=== PATIENT | male | born 1975 | race Caucasian/White ===

== ENCOUNTER 2017-10-02 17:05 | Emergency (ER) | payer BC ==
[2017-10-02] MEDS ORDERED: ACETAMINOPHEN 500 MG TAB ONE (17:25)
[2017-10-02] MEDS ORDERED: ONDANSETRON 4 MG/2 ML VIAL ONE (19:17)
[2017-10-02] MEDS ORDERED: NA CHLORIDE 0.9% 1,000 ML ONE (19:17)
[2017-10-02 19:59] LABS: Absolute Lymphocytes (CBC) 1.7 K/uL (0.7-4.9); Absolute Monocytes 1.5 K/uL (0.1-1.3); Absolute Neutrophil 13.1 K/uL (1.8-8.0); Basophils % 0.3 % (0-1.3); Eosinophils % 0.4 % (0-4.4); Hematocrit 41.2 % (39.6-49.0); Lymphocytes % 10.2 % (15.3-44.8); MCH 29.7 pg (27.0-35.0); MCV 87.3 fL (80-100); MPV 7.5 fL (7.6-11.3); Monocytes % 9.3 % (3.3-12.3); RBC Red Blood Cell Count 4.72 M/uL (4.33-5.43)
--- NOTE | 2017-10-02 21:11 | RAD REPORT ---
EXAM DESCRIPTION: CTAbdomen Pelvis W Contrast - 10/02/2017 9:00 pm CLINICAL HISTORY: Abdominal pain. COMPARISON: 05/23/2011 TECHNIQUE: Biphasic CT imaging of the abdomen and pelvis was performed with 100 ml non-ionic IV cont rast. All CT scans are performed using dose optimization technique as appropriate and may include automated exposure control or mA/KV adjustment according to patient size. FINDINGS: Mild linear subsegmental atelectasis is present in both lung bases. A small hiatal hernia is present. The liver, spleen, pancreas, adrenal glands and kidneys are within normal limits. No bowel obstruction, free air, free fluid or abscess. Appendectomy clips. No evidence of significa nt lymphadenopathy. No suspicious bony findings. IMPRESSION: No acute intra-abdominal or pelvic finding.
--- NOTE | 2017-10-02 21:33 | EDPHYS ---
Physician Documentation [facility] Name: Fredi Harper Age: 42 yrs Sex: Male : 1975 Arrival Date: 10/02/2017 Time: 17:07 Bed 17 Private MD: ED Physician Abhay Stewart HPI: 10/02 18:38 This 42 yrs old Male presents to ER via Ambulatory with complaints of Flu kb Symptoms. 18:38 The patient presents to the emergency department with nausea, vomiting, diarrhea. kb Onset: The symptoms/episode began/occurred 3 day(s) ago. Possible causes: unknown. The symptoms are aggravated by nothing. The symptoms are alleviated by nothing. Associated signs and symptoms: Pertinent positives: diarrhea, fever, nausea, vomiting, Pertinent negatives: abdominal pain, anorexia, belching, constipation, dysuria, flatulence, GI bleeding, hematuria. Severity of symptoms: At their worst the symptoms were moderate in the emergency department the symptoms are unchanged. The patient has not experienced similar symptoms in the past. The patient has not recently seen a physician. Pt reports n/v/d, fever and sore throat since Tuesday. Historical: - Allergies: 17:21 No Known Allergies; la1 - Home Meds: 18:20 None [Active]; rb1 - PMHx: 17:21 None; la1 - PSHx: 18:20 None; rb1 - Immunization history:: Adult Immunizations up to date. - Social history:: Smoking status: Patient/guardian denies using tobacco. ROS: 18:32 Eyes: Negative for injury, pain, redness, and discharge, Neck: Negative for injury, kb pain, and swelling, Cardiovascular: Negative for chest pain, palpitations, and edema, Respiratory: Negative for shortness of breath, cough, wheezing, and pleuritic chest pain, Back: Negative for injury and pain, : Negative for injury, bleeding, discharge, and swelling, MS/Extremity: Negative for injury and deformity, Skin: Negative for injury, rash, and discoloration, Neuro: Negative for headache, weakness, numbness, tingling, and seizure. 18:32 Constitutional: Positive for body aches, chills, fatigue, fever, malaise, Negative for poor PO intake, weight loss. 18:32 ENT: Positive for sore throat. 18:32 Abdomen/GI: Positive for nausea, vomiting, and diarrhea, Negative for abdominal pain, constipation, abdominal cramps, abdominal distension, anorexia. Exam: 18:32 Head/Face: Normocephalic, atraumatic. Eyes: Pupils equal round and reactive to light, kb extra-ocular motions intact. Lids and lashes normal. Conjunctiva and sclera are non-icteric and not injected. Cornea within normal limits. Periorbital areas with no swelling, redness, or edema. ENT: Nares patent. No nasal discharge, no septal abnormalities noted. Tympanic membranes are normal and external auditory canals are clear. Oropharynx with no redness, swelling, or masses, exudates, or evidence of obstruction, uvula midline. Mucous membranes moist. Neck: Trachea midline, no thyromegaly or masses palpated, and no cervical lymphadenopathy. Supple, full range of motion without nuchal rigidity, or vertebral point tenderness. No Meningismus. Chest/axilla: Normal chest wall appearance and motion. Nontender with no deformity. No lesions are appreciated. Cardiovascular: Regular rate and rhythm with a normal S1 and S2. No gallops, murmurs, or rubs. Normal PMI, no JVD. No pulse deficits. Respiratory: Lungs have equal breath sounds bilaterally, clear to auscultation and percussion. No rales, rhonchi or wheezes noted. No increased work of breathing, no retractions or nasal flaring. Abdomen/GI: Soft, non-tender, with normal bowel sounds. No distension or tympany. No guarding or rebound. No evidence of tenderness throughout. Skin: Warm, dry with normal turgor. Normal color with no rashes, no lesions, and no evidence of cellulitis. MS/ Extremity: Pulses equal, no cyanosis. Neurovascular intact. Full, normal range of motion. Neuro: Awake and alert, GCS 15, oriented to person, place, time, and situation. Cranial nerves II-XII grossly intact. Motor strength 5/5 in all extremities. Sensory grossly intact. Cerebellar exam normal. Normal gait. 18:32 Constitutional: The patient appears alert, awake, uncomfortable. Vital Signs: 17:21 BP 132 / 85; Pulse 110; Resp 19; Temp 100.3(TE); Pulse Ox 100% on R/A; Weight 90.72 kg; la1 Height 5 ft. 11 in. (180.34 cm); 18:48 Temp 98.7(TE); rb1 19:10 BP 138 / 86; Pulse 103; Resp 16; Pulse Ox 100% on R/A; Pain 0/10; ao 20:05 BP 141 / 93; Pulse 93; Resp 16; Pulse Ox 99% on R/A; Pain 0/10; ao 21:13 BP 136 / 86; Pulse 94; Resp 18; Pulse Ox 100% on R/A; Pain 0/10; ao 17:21 Body Mass Index 27.89 (90.72 kg, 180.34 cm) la1 MDM: 18:19 Patient medically screened. kb 18:37 Data reviewed: vital signs, nurses notes. Data interpreted: Pulse oximetry: on room air kb is 100 %. Interpretation: normal. 21:16 Counseling: I had a detailed discussion with the patient and/or guardian regarding: the kb historical points, exam findings, and any diagnostic results supporting the discharge/admit diagnosis, lab results, radiology results, the need for outpatient follow up, a family practitioner, to return to the emergency department if symptoms worsen or persist or if there are any questions or concerns that arise at home. 21:32 ED course: Tolerating PO intake. kb 10/02 17:22 Order name: Strep; Complete Time: 17:54 la1 10/02 17:22 Order name: Flu; Complete Time: 17:54 la1 10/02 17:45 Order name: Throat Culture EDMS 10/02 18:22 Order name: CBC with Diff 10/02 18:22 Order name: Basic Metabolic Panel 10/02 18:22 Order name: [place] Screen Profile 10/02 18:23 Order name: CBC with Automated Diff; Complete Time: 20:15 EDMS 10/02 18:23 Order name: Basic Metabolic Panel; Complete Time: 19:20 EDMS 10/02 18:23 Order name: [place] Screen; Complete Time: 19:20 EDMS 10/02 20:16 Order name: CT Abd/Pelvis - W/Contrast; Complete Time: 21:15 kb 10/02 21:20 Order name: PO challenge; Complete Time: 21:25 kb Administered Medications: 17:35 Drug: Tylenol 1000 mg Route: PO; la1 18:54 Follow up: Response: No adverse reaction; Temperature is decreased rb1 19:22 Drug: NS 0.9% 1000 ml Route: IV; Rate: 1000 ml; Site: right antecubital; ao 21:48 Follow up: IV Status: Completed infusion ao 19:22 Drug: Zofran 4 mg Route: IVP; Site: right antecubital; ao 21:48 Follow up: Response: No adverse reaction ao Disposition: 10/03 08:59 Co-signature as Attending Physician, Abhay Stewart MD I agree with the assessment and rashard plan of care. Disposition: 10/02/17 21:32 Discharged to Home. Impression: Noninfective gastroenteritis and colitis, unspecified. - Condition is Stable. - Discharge Instructions: Food Choices to Help Relieve Diarrhea, Adult, Viral Gastroenteritis. - Prescriptions for Zofran 4 mg Oral Tablet - take 1 tablet by ORAL route every 6 hours As needed; 20 tablet. - Medication Reconciliation Form, Thank You Letter, Antibiotic Education, Prescription Opioid Use form. - Follow up: Emergency Department; When: As needed; Reason: Worsening of condition. Follow up: Private Physician; When: 2 - 3 days; Reason: Recheck today's complaints, Continuance of care, Re-evaluation by your physician. Signatures: Dispatcher [employer] EDMS Peace Pacheco, SHEET SEWER-C SHEET SEWER-Abhay Byrne MD MD cha Attema, Lee RN RN laEly Swann, RN RN rb1 Abdi Glass RN RN ao Corrections: (The following items were deleted from the chart) 10/02 17:23 17:22 Group A Streptococcus Rapid Sc+BA.LAB.BRZ ordered. EDMS EDMS : 17:22 Influenza Screen (A \T\ B)+BA.LAB.BRZ ordered. EDMS EDMS
--- NOTE | 2017-10-02 21:33 | ER ---
Nurse's Notes [facility] Name: Fredi Harper Age: 42 yrs Sex: Male : 1975 Arrival Date: 10/02/2017 Time: 17:07 Bed 17 Private MD: Diagnosis: Noninfective gastroenteritis and colitis, unspecified Presentation: 10/02 17:20 Presenting complaint: Patient states: sore throat, fever, vomiting, diarrhea for 3 la1 days. Transition of care: patient was not received from another setting of care. Onset of symptoms was October 02, 2017. Initial Sepsis Screen: Does the patient meet any 2 criteria? No. Patient's initial sepsis screen is negative. Does the patient have a suspected source of infection? No. Patient's initial sepsis screen is negative. Care prior to arrival: None. 17:20 Method Of Arrival: Ambulatory la1 17:20 Acuity: DARYL 3 la1 Historical: - Allergies: 17:21 No Known Allergies; la1 - Home Meds: 18:20 None [Active]; rb1 - PMHx: 17:21 None; la1 - PSHx: 18:20 None; rb1 - Immunization history:: Adult Immunizations up to date. - Social history:: Smoking status: Patient/guardian denies using tobacco. Screenin:20 Abuse screen: Denies threats or abuse. Nutritional screening: No deficits noted. rb1 Tuberculosis screening: No symptoms or risk factors identified. Fall Risk None identified. Assessment: 18:20 General: Appears in no apparent distress. comfortable, Behavior is calm, cooperative, rb1 Reports fever for 2-3 days. Neuro: Level of Consciousness is awake, alert, obeys commands, Oriented to person, place, time, situation. Cardiovascular: Capillary refill < 3 seconds is brisk in bilateral fingers. Respiratory: Airway is patent Respiratory effort is even, unlabored, Respiratory pattern is regular, symmetrical. GI: Reports nausea, vomiting. : No signs and/or symptoms were reported regarding the genitourinary system. Derm: Skin is pink, warm \T\ dry. 19:12 General: Appears in no apparent distress. comfortable, Behavior is calm, cooperative, ao appropriate for age, Reports fever for 2-3 days. Pain: Complains of pain in Body aches Pain does not radiate. Pain currently is 2 out of 10 on a pain scale. Neuro: Level of Consciousness is awake, alert, obeys commands, Oriented to person, place, Moves all extremities. Speech is normal, Facial symmetry appears normal. Cardiovascular: Capillary refill < 3 seconds is brisk in bilateral fingers Patient's skin is warm and dry. Respiratory: Airway is patent Respiratory effort is even, unlabored, Respiratory pattern is regular, symmetrical. GI: Abdomen is non-distended, Bowel sounds present X 4 quads. Reports nausea, vomiting. : No signs and/or symptoms were reported regarding the genitourinary system. EENT: No signs and/or symptoms were reported regarding the EENT system. Derm: Skin is pink, warm \T\ dry. Musculoskeletal: No signs and/or symptoms reported regarding the musculoskeletal system. 20:03 Reassessment: Patient appears in no apparent distress at this time. No changes from ao previously documented assessment. Patient and/or family updated on plan of care and expected duration. Pain level reassessed. Patient is alert, oriented x 3, equal unlabored respirations, skin warm/dry/pink. Waiting on WBC. [place] was negative and patient was notified. 21:13 Reassessment: Patient appears in no apparent distress at this time. Patient and/or ao family updated on plan of care and expected duration. Pain level reassessed. Patient is alert, oriented x 3, equal unlabored respirations, skin warm/dry/pink. Patient back from CT. waiting on CT report. 21:46 Reassessment: Dc instructions given to patient. Patient understand the POC and to ao follow up with PCP. Patient has no questions at this time. Vital Signs: 17:21 BP 132 / 85; Pulse 110; Resp 19; Temp 100.3(TE); Pulse Ox 100% on R/A; Weight 90.72 kg; la1 Height 5 ft. 11 in. (180.34 cm); 18:48 Temp 98.7(TE); rb1 19:10 BP 138 / 86; Pulse 103; Resp 16; Pulse Ox 100% on R/A; Pain 0/10; ao 20:05 BP 141 / 93; Pulse 93; Resp 16; Pulse Ox 99% on R/A; Pain 0/10; ao 21:13 BP 136 / 86; Pulse 94; Resp 18; Pulse Ox 100% on R/A; Pain 0/10; ao 17:21 Body Mass Index 27.89 (90.72 kg, 180.34 cm) la1 ED Course: 17:07 Patient arrived in ED. as 17:21 Triage completed. la1 17:21 Arm band placed on left wrist. la1 17:54 Peace Pacheco [facility]C [facility]. kb 17:54 Abhay Stewart MD is Attending Physician. kb 18:18 Ely Carlin, RN is Primary Nurse. rb1 18:20 Patient has correct armband on for positive identification. Bed in low position. Call rb1 light in reach. Side rails up X 1. Pulse ox on. NIBP on. 18:30 Missed attempt(s): 22 gauge in right antecubital area. Labs were collected, but IV rb1 would not advance.. 18:59 Inserted saline lock: 22 gauge in right forearm, using aseptic technique. jb1 19:00 Report given to CYNTHIA Patton. rb1 19:14 Report received from CYNTHIA Graves. ao 21:00 CT Abd/Pelvis - W/Contrast In Process Unspecified. EDMS 21:47 No provider procedures requiring assistance completed. IV discontinued, intact, ao bleeding controlled, No redness/swelling at site. Pressure dressing applied. Administered Medications: 17:35 Drug: Tylenol 1000 mg Route: PO; la1 18:54 Follow up: Response: No adverse reaction; Temperature is decreased rb1 19:22 Drug: NS 0.9% 1000 ml Route: IV; Rate: 1000 ml; Site: right antecubital; ao 21:48 Follow up: IV Status: Completed infusion ao 19:22 Drug: Zofran 4 mg Route: IVP; Site: right antecubital; ao 21:48 Follow up: Response: No adverse reaction ao Outcome: 21:32 Discharge ordered by . kb 21:47 Discharged to home ambulatory. ao 21:47 Condition: stable 21:47 Discharge instructions given to patient, Instructed on discharge instructions, follow up and referral plans. Demonstrated understanding of instructions, follow-up care, medications, wound care, Prescriptions given X 1. 21:48 Patient left the ED. ao Signatures: Dispatcher [employer] EDMS Chris Cochran jb1 Peace Pacheco FNP-C FNP-Joselyn Lehman Lee, RN RN la1 Ely Carlin, CYNTHIA MARIE rb1 Glass, Abdi, RN RN ao
== END 2017-10-02 21:48 | disposition home or self-care (01) ==
LOC: ER 17:05
DX: K52.9 Noninfective gastroenteritis and colitis, unspecified (principal)
CPT/HCPCS: 36415; 74177; 80048; 85025; 86308; 87070; 87081; 87804; 96361; 96374; 99284; J2405; J7030; Q9967